=== PATIENT | male | born 1995 | race Caucasian/White ===

== ENCOUNTER 2020-06-16 07:05 | Outpatient (CLI) | payer OTHER, SELFPAY ==
--- NOTE | 2020-06-16 07:15 | US_ITS ---
WS: [id number] ULTRASOUND ABDOMEN CLINICAL INFORMATION: lower abdomen, work physical COMPARISON: None. FINDINGS: Liver Size: Normal. Craniocaudal length: 14.5 cm. Echogenicity: Normal. Surface nodularity: None. Mass (size and location): None. Bile ducts Intrahepatic ducts: Normal. Common bile duct diameter: 0.4 cm. Gallbladder Normal. Gallstones: None. Gallbladder sludge: None. Gallbladder wall thickening: None. Pericholecystic fluid: None. Sonographic Escudero sign: Absent. Pancreas Normal as visualized. Spleen Splenomegaly: None. Craniocaudal length: 11.4 cm. Right kidney: Normal. Hydronephrosis: None. Size: 11.0 cm x 4.4 cm x 5.1 cm Left kidney: Normal. Hydronephrosis: None. Size: 10.8 cm x 4.5 cm x 5.1 cm. Abdominal aorta and IVC Visualized portions are normal. Ascites: None. US/US abdomen complete* [id number] IMPRESSION: Normal abdominal ultrasound
--- NOTE | 2020-06-16 08:00 | US_ITS ---
WS: [id number] SCROTAL ULTRASOUND EXAMINATION CLINICAL INFORMATION: hydrocele COMPARISON: None. FINDINGS: TESTES Normal in size and echotexture, without focal lesion. Color Doppler: Normal color Doppler flow pattern. Right testes size: 3.8 cm x 2.3 cm x 2.0 cm. Left testes size: 4.0 cm x 2.7 cm x 1.9 cm. EPIDIDYMIDES Normal in size and echotexture, without focal lesion. Color Doppler: Normal color Doppler flow pattern. Right epididymis size: 0.8 cm x cm x 1.0 cm. Left epididymitis size: 0.7 cm x cm x 1.0 cm. HYDROCELE Moderate to large right hydrocele measuring 6.2 x 3.3 x 4.7 cm VARICOCELE None. OTHER FINDINGS None. US/US scrotum [id number] IMPRESSION: 1. Moderate to large right hydrocele 2. Testicles are otherwise normal
== END 2020-06-16 07:06 | disposition home or self-care (01) ==
LOC: RAD 07:06
PROVIDERS: PCP Family Medicine; Visit Provider Family Medicine
DX: N43.3 Hydrocele, unspecified (principal); R10.30 Lower abdominal pain, unspecified
CPT/HCPCS: 76700; 76870